=== PATIENT | female | born 1935 | race Hispanic/Latino ===

== ENCOUNTER 2021-09-11 10:06 | Observation (INO) | payer MEDICARE ==
[~2021-09-11] VITALS: Ht 160 cm; Wt 90.3 kg
[~2021-09-11 10:06] MED LIST: ALBUTEROL0.63 MG/3 INH; ATORVASTATIN CA10 MG PO; BACLOFEN10 MG PO; ELIQUIS2.5 MG PO; LEVOCETIRIZINE D5 MG PO; LOSARTAN-HCTZ1 EACH PO; MAGNESIUM OXID400 MG PO; MONTELUKAST SOD10 MG PO; NEURONTIN300 MG PO; OMEPRAZOLE40 MG PO; PAROXETINE HCL20 MG PO; SYMBICORT 16010.2 GM INH; ULTRAM50 MG PO; VITAMIN B-121000 MCG PO; Z VITAMIN D PO; Z.0.BENICAR20 MG PO; Z.0.PRAVASTATIN SOD4 PO; [UNRECOGNIZED DRUG - OTHER] PO
[2021-09-11] MEDS ORDERED: LEVOFLOXACIN 500MG/D5W 100ML 100 ML IV ONE (11:05)
[2021-09-11] MEDS ORDERED: BUPIVACAINE HCL 0.5% INJ 30 ML VIAL INJ ONE (12:10)
[2021-09-11] MEDS ORDERED: POVIDONE IODINE 0.05% 0.05 % ML PO ONE (12:51)
[2021-09-11] MEDS ORDERED: GLYCOPYRROLATE INJ 0.2 MG/ML VIAL ONE (12:51)
[2021-09-11] MEDS ORDERED: DEXAMETHASONE SOD PHOS INJ 4 MG/ML SDV ONE (12:51)
[2021-09-11] MEDS ORDERED: ROCURONIUM BROMIDE 10 MG/ML 5ML VIAL IV ONE (12:51)
[2021-09-11] MEDS ORDERED: NEOSTIGMINE 1 MG/ML 10ML VIAL ONE (12:51)
[2021-09-11] MEDS ORDERED: SEVOFLURANE INHAL SOLN 250 ML PEN BTL ONE (12:51)
[2021-09-11] MEDS ORDERED: ONDANSETRON HCL INJ 2MG/ML 2ML 2 MG/ML VIAL ONE (12:51)
[2021-09-11] MEDS ORDERED: PHENYLEPHRINE HCL 1% 10 MG/ML VIAL ONE (12:51)
[2021-09-11] MEDS ORDERED: LIDOCAINE HCL 2% LOCAL INJ 5 ML SDV VIAL INJ ONE (12:51)
[2021-09-11] MEDS ORDERED: PROPOFOL IV EMULSION 10 MG/ML 20 ML VIAL ONE (12:51)
[2021-09-11] MEDS ORDERED: MORPHINE SULFATE 1 MG/ML 30ML PCA IV PRN (13:15)
[2021-09-11] MEDS ORDERED: ACETAMINOPHEN 325 MG TAB PO PRN (13:15)
[2021-09-11] MEDS ORDERED: ONDANSETRON HCL INJ 2MG/ML 2ML 2 MG/ML VIAL IV PRN (13:15)
[2021-09-11] MEDS ORDERED: ACETAMINOPHEN 1000 MG/100 ML IV PRN (13:15)
[2021-09-11] MEDS ORDERED: NALOXONE HCL INJ 0.4 MG/ML AMP IV PRN (13:15)
[2021-09-11] MEDS ORDERED: KETOROLAC TROMETHAMINE 30 MG/ML VIAL IV PRN (13:15)
[2021-09-11] MEDS ORDERED: DEXTROSE 50% SYRINGE 50 ML IV PRN (13:30)
[2021-09-11] MEDS ORDERED: ALBUTEROL SULF 0.083% NEB SOLN 3 ML NEB INH PRN (13:30)
[2021-09-11] MEDS ORDERED: LABETALOL HCL 20 ML ONE (13:54)
[2021-09-11 14:45] VITALS: BP 120/54
[2021-09-11 15:38] VITALS: BP 120/54
[2021-09-11] MEDS: LOSARTAN POTASSIUM 25 MG TAB PO SCH ×2 (15:51→16:58)
[2021-09-11] MEDS: GABAPENTIN 300 MG CAP PO SCH ×2 (15:51→20:57)
[2021-09-11] MEDS: SODIUM CHLORIDE 0.9% 1000ML 1,000 ML IV SCH (15:51)
[2021-09-11] MEDS: HYDROCHLOROTHIAZIDE 25 MG TAB PO SCH ×2 (15:52→16:58)
[2021-09-11] MEDS: INSULIN LISPRO 100 UNIT/1 ML 3ML VIAL SQ SCH ×2 (16:30→21:00)
[2021-09-11] MEDS ORDERED: FENTANYL CITRATE/PF 100MCG/2 ML INJ ONE (16:58)
[2021-09-11] MEDS ORDERED: NON-FORMULARY MEDICATION (Losartan/Hydrochlorothiazide (Losartan-Hctz 50-12.5 Mg Tab) 1 TA PO SCH (17:00)
[2021-09-11] MEDS: BUDESONIDE/FORMOTEROL 160/4.5MCG INHALER INH SCH (19:41)
[2021-09-11 20:00] VITALS: BP 139/81
[2021-09-11 20:56] VITALS: BP 139/81
[2021-09-11] MEDS: ATORVASTATIN 10 MG TAB PO SCH (20:57)
[2021-09-11] MEDS ORDERED: HYDRALAZINE HCL 20 MG/ML VIAL IV PRN (23:00)
[2021-09-12] VITALS (8 sets, daily range): BP systolic 105–161; BP diastolic 56–82
[2021-09-12] MEDS: SODIUM CHLORIDE 0.9% 1000ML 1,000 ML IV SCH ×2 (00:34→11:25)
[2021-09-12 05:48] LABS: BASOPHILS % 0.1 % (0.0-1.0); HEMATOCRIT 31.3 % (34.2-44.1); LYMPHOCYTES % 14.2 % (18.0-39.1); MEAN CORPUSCULAR HEMOGLOBIN 32.6 pg (28-32); MEAN CORPUSCULAR HGB CONC 31.9 g/dL (31-35); MONOCYTES # (AUTO) 0.5 (0.2-0.8); MONOCYTES % 6.8 % (4.4-11.3); NEUTROPHILS # (AUTO) 5.6 (2.1-6.9); NEUTROPHILS % 78.3 % (38.7-80.0); PLATELET COUNT 243 x10e3/uL (140-360); RED BLOOD COUNT 3.07 x10e6/uL (3.6-5.1)
[2021-09-12 06:17] LABS: ANION GAP 11.3 mmol/L (8-16); CALCIUM 8.9 mg/dL (8.4-10.2); CREATININE, SERUM 0.7 mg/dL (0.57-1.11); POTASSIUM 4.3 mmol/L (3.5-5.1)
[2021-09-12] MEDS: INSULIN LISPRO 100 UNIT/1 ML 3ML VIAL SQ SCH ×4 (07:30→20:41)
[2021-09-12] MEDS: GABAPENTIN 300 MG CAP PO SCH ×3 (08:49→20:23)
[2021-09-12] MEDS: MAGNESIUM OXIDE 400 MG TAB PO SCH (08:49)
[2021-09-12] MEDS: PAROXETINE HCL 20 MG TAB PO SCH (08:49)
[2021-09-12] MEDS: PANTOPRAZOLE SOD 40 MG TABEC PO SCH (08:49)
[2021-09-12] MEDS: BACLOFEN 10 MG TAB PO SCH (08:49)
[2021-09-12] MEDS: MONTELUKAST SODIUM 10 MG TAB PO SCH (08:49)
[2021-09-12] MEDS ORDERED: HYDROCODONE/APAP 5MG-325MG TAB PO PRN (10:45)
[2021-09-12] MEDS ORDERED: AMLODIPINE BESYLATE 10 MG TAB PO ONE (11:30)
[2021-09-12] MEDS: BUDESONIDE/FORMOTEROL 160/4.5MCG INHALER INH SCH (19:40)
[2021-09-12] MEDS: ATORVASTATIN 10 MG TAB PO SCH (20:23)
[2021-09-13] VITALS: BP 132/65
[2021-09-13 04:00] VITALS: BP 141/50
[2021-09-13] MEDS ORDERED: HYDROCODON-ACE1 EA11 PO (06:16)
[2021-09-13] MEDS ORDERED: ONDANSETRON HCL 4 MG ORAL DISINTEGRATING TAB PO PRN (06:45)
[2021-09-13] MEDS: BUDESONIDE/FORMOTEROL 160/4.5MCG INHALER INH SCH (07:00)
[2021-09-13] MEDS: INSULIN LISPRO 100 UNIT/1 ML 3ML VIAL SQ SCH (07:30)
[2021-09-13 07:57] VITALS: BP 157/66
[2021-09-13 08:00] VITALS: BP 157/66
[2021-09-13] MEDS: SODIUM CHLORIDE 0.9% 1000ML 1,000 ML IV SCH (08:28)
[2021-09-13] MEDS ORDERED: AMLODIPINE BESYLATE 10 MG TAB PO SCH (09:00)
[2021-09-13] MEDS: GABAPENTIN 300 MG CAP PO SCH (09:05)
[2021-09-13] MEDS: PANTOPRAZOLE SOD 40 MG TABEC PO SCH (09:05)
[2021-09-13] MEDS: MAGNESIUM OXIDE 400 MG TAB PO SCH (09:05)
[2021-09-13] MEDS: BACLOFEN 10 MG TAB PO SCH (09:05)
[2021-09-13] MEDS: MONTELUKAST SODIUM 10 MG TAB PO SCH (09:06)
[2021-09-13] MEDS: PAROXETINE HCL 20 MG TAB PO SCH (09:06)
== END 2021-09-13 09:20 | disposition home or self-care (01) ==
LOC: OR 10:06 → PACU V 14:28 → MED/SURG3 14:45
PROVIDERS: ADMIT Surgery; ATTEND Surgery
DX: K43.0 Incisional hernia with obstruction, without gangrene (principal); K21.9 Gastro-esophageal reflux disease without esophagitis; I10 Essential (primary) hypertension; J44.9 Chronic obstructive pulmonary disease, unspecified; E78.5 Hyperlipidemia, unspecified; E11.9 Type 2 diabetes mellitus without complications; E66.9 Obesity, unspecified; Z68.35 Body mass index [BMI] 35.0-35.9, adult; Z88.0 Allergy status to penicillin; Z01.812 Encounter for preprocedural laboratory examination; Z20.822 Contact with and (suspected) exposure to COVID-19; Z01.818 Encounter for other preprocedural examination
CPT/HCPCS: 36415 ×3; 49561; 49568; 71046; 80048; 82948 ×3; 85025; 88302; 94664; 94799 ×3; 96360; 96361 ×2; 96372; 99251; G0378 ×3; J0131; J1100; J1956; J2001; J2270; J2370; J2405; J2704; J2710; J3010; J7030 ×2; S0164 ×2; U0002